=== PATIENT | female | born 1995 | race African-American/Black ===

== ENCOUNTER 2021-08-10 09:32 | Observation (INO) ==
--- NOTE | 2021-08-10 09:47 | Progress Note ---
Date of Service August 10, 2021 Assessment & Plan (1) Abdominal pain affecting : Plan: Signs and symptoms are more likely due to GERD, however will have patient evaluated in ER, and rule out any gallbladder or other pathology at this time UA sent Pain does not appear to be related Patient and her voiced their understanding and agreement with the plan. Patient to be transferred to the ER for further evaluation Subjective Patient is 26 year old at 20 6/7 weeks with complaint of epigastric pain, feels like heartburn and all over abdominal pain. Took Tylenol this morning at 4 AM, did not have much relief with Tylenol, called the answering service and then went to clinic with her where she is noted to be in a lot of pain at that time. She was counseled by nursing staff to go immediately to the ER. She then presented to labor and delivery. Notes movement. Denies leaking or bleeding. Denies any contractions. Denies fevers or chills, nausea or vomiting. Otherwise feeling well. Previous CDx2 Review of Systems Constitutional: as per Subjective / HPI Physical Exam Constitutional: WD/WN, vitals as above Respiratory: normal respiratory effort, lungs clear to auscultation Cardiovascular: RRR, no murmur, no edema Gastrointestinal (Abdomen): Soft abdomen, tenderness over the epigastric region and right upper quadrant, no guarding or rebound. Positive bowel sounds Uterus soft No CVA tenderness Genitourinary: normal external appearance and bladder normal to inspection FHT: [address] [place]: no contractions Cervix: 0/0/-3 (confirmed on previa on recent anatomy scan prior to cervical exam) Results & Data ([facility]) Vital Signs (Past 12 Hours) Vital Signs Pulse BP 08/10/21 09:41 100 H 126/64
[2021-08-10 10:42] LABS: Appearance Urine Clear (Clear); Bilirubin Urine Negative (Negative); Blood Urine Negative (Negative); Color Urine Yellow; Glucose Urine UA Negative (Negative); Ketones Urine Negative (Negative); Leukocyte Esterase Urine Negative (Negative); Nitrite Urine Negative (Negative); Protein Urine Negative (Negative); Specific Gravity Urine 1.007 (1.000-1.030); Urobilinogen Urine Negative (Negative)
== END 2021-08-10 10:30 | disposition home or self-care (01) ==
LOC: EDINP → 4S1 → OPB 09:32 → EDSTATUS 09:32 → 4S1 09:34 → EDINP 09:34

== ENCOUNTER 2021-12-18 06:59 | Inpatient (IN) ==
--- NOTE | 2021-12-12 09:01 | Anesthesiology Consultation ---
Date of Service December 12, 2021 Assessment & Plan (1) Encounter for pre-operative examination: Chart Review Chart Review: Acceptable Risk for Surgery and Patient NOT seen in Pre Admission Testing History Surgery Operation Date: 12/18/21 07:30 Proposed Procedures p Repeat Section in LD - Phani Frye MD Height/Weight Weight: 90.718 kg Allergies Allergy/AdvReac Type Severity Reaction Status Date / Time No Known Allergies Allergy Verified 12/11/21 15:08 Medications Home Medications Medication Instructions Recorded Confirmed Last Taken acetaminophen 500 mg tablet 1,000 mg PO Q6H PRN Pain 03/01/20 12/11/21 08/10/21 (Tylenol Extra Strength) ibuprofen 200 mg tablet (Advil) 200 mg PO Q6H PRN Pain 03/03/20 12/11/21 08/10/21 vitamin with calcium 1 tab PO QAM 08/10/21 12/11/21 08/10/21 no.72-iron 27 mg-folic acid 1 mg tablet ( Vitamins Plus Low Iron) Past Medical History Medical History History of anesthesia problem "during last pt started to feel what they were doing" No pertinent past medical history Past Family History Family History Denies family history of Ovarian cancer Deep vein thrombosis Clotting disorder Breast cancer Colorectal cancer Uterine cancer Past Surgical History Surgical History Previous section x2 Social History Smoking Status: Never smoker Do You Dip or Chew Tobacco: No Hx Alcohol Use: No Hx Substance Use: No substance use type: does not use
[~2021-12-18 06:59] MED LIST: CITRIC ACID/SODIUM CITRATE 15 ML UDC PO SCH; ceFAZolin 2000MG 2,000 MG/15 ML SYR IV SCH
[2021-12-18] MEDS ORDERED: fentaNYL citrate 100 MCG/2 ML VIAL ONE (07:09)
[2021-12-18] MEDS ORDERED: ONDANSETRON INJ 2 MG/ML 2 ML VIAL ONE (07:09)
[2021-12-18] MEDS ORDERED: KETOROLAC 30 MG/ML VIAL ONE (07:09)
[2021-12-18] MEDS ORDERED: OXYTOCIN 10 UNITS/ML 10ML VIAL ONE (07:09)
[2021-12-18] MEDS ORDERED: MoRPHine SULFATE PF 1 MG/ML 10 ML AMP/VIAL ONE (07:09)
[2021-12-18] MEDS ORDERED: CITRIC ACID/SODIUM CITRATE 15 ML UDC ONE (07:27)
[2021-12-18] MEDS ORDERED: LACTATED RINGER'S 1,000 ML IV SCH (07:30)
[2021-12-18 07:46] LABS: Basophils # (auto) 0.02 K/uL (0-0.2); Basophils % (auto) 0.4 %; Eosinophils # (auto) 0.15 K/uL (0-0.50); Eosinophils % (auto) 2.7 %; Hematocrit (blood only) 36.5 % (34.1-44.9); Hemoglobin 12.7 g/dl (12.0-16.0); Immature Granulocytes # (auto) 0.01 K/uL (0.00-0.02); Immature Granulocytes % (auto) 0.2 %; Lymphocytes # (auto) 1.82 K/uL (1.2-3.4); Lymphocytes % (auto) 32.7 %; Mean Corpuscular Hemoglobin 25.7 pg (25.0-34.0); Mean Corpuscular Hgb Conc 34.8 g/dL (32.0-36.0); Mean Corpuscular Volume 73.9 fL (80.0-100.0); Mean Platelet Volume 9.9 fL (9.4-12.3); Monocytes # (auto) 0.31 K/uL (0.24-0.82); Monocytes % (auto) 5.6 %; Neutrophils # (auto) 3.26 K/uL (1.4-6.5); Neutrophils % (auto) 58.4 %; Platelet Count 199 K/uL (130-400); RDW Standard Deviation 37.3 fL (36.4-46.3); Red Blood Count 4.94 M/uL (3.93-5.22); White Blood Count 5.57 K/ul (4.8-10.8)
[2021-12-18] MEDS ORDERED: ACETAMINOPHEN 1000 MG/100 ML IV IV PRN (08:01)
[2021-12-18] MEDS ORDERED: ONDANSETRON INJ 2 MG/ML 2 ML VIAL IV PRN ×2 (08:01→10:16)
[2021-12-18] MEDS ORDERED: LACTATED RINGER'S 500 ML IV PRN (08:01)
[2021-12-18] MEDS ORDERED: MoRPHine SULFATE PF 1 MG/ML 10 ML AMP/VIAL INT SPINAL ONE (08:01)
[2021-12-18] MEDS ORDERED: NALOXONE HCL 1 MG in SODIUM CHLORIDE 0.9% 1000ML 1,000 ML IV PRN (08:01)
[2021-12-18] MEDS ORDERED: HYDROmorphone INJ 0.5 MG/0.5 ML SYR IV PRN (08:01)
[2021-12-18] MEDS ORDERED: KETOROLAC 30 MG/ML VIAL IV PRN (08:01)
[2021-12-18] MEDS ORDERED: ePHEDrine sulfate 50 MG/ML AMP IV PRN (08:01)
[2021-12-18] MEDS ORDERED: NALOXONE HCL 0.08 MG in SYRINGE 1.8 ML IV PRN (08:01)
[2021-12-18] MEDS ORDERED: diphenhydrAMINE 50 MG/ML VIAL IV PRN (08:01)
[2021-12-18] MEDS ORDERED: NALBUPHINE HCL INJ 10 MG/ML AMP IV PRN (08:01)
[2021-12-18] MEDS ORDERED: PROMETHAZINE HCL 25 MG in SODIUM CHLORIDE 0.9% 50 ML IV PRN (08:01)
[2021-12-18] MEDS ORDERED: NALOXONE HCL 0.4 MG/1 ML VIAL/CARP IV PRN (08:01)
[2021-12-18] MEDS ORDERED: SODIUM CHLORIDE 0.9% 250 ML IV PRN (08:13)
[2021-12-18] MEDS ORDERED: DC INTRASPINAL MORPHINE SCH (08:15)
[2021-12-18] MEDS ORDERED: SODIUM CHLORIDE 0.9% 1000ML 1,000 ML IV SCH (08:15)
[2021-12-18] MEDS ORDERED: NO NARCOTICS OR SEDATIVES SCH (08:15)
--- NOTE | 2021-12-18 08:17 | History & Physical Bridge Note ---
Date of Service December 18, 2021 History & Physical Bridge Note I have examined the patient, reviewed the History & Physical and in the interval since the performance of the History & Physical I have noted the following changes of clinical significance: no changes noted She has signed an informed consent for Repeat Low Transverse Csection.
--- NOTE | 2021-12-18 10:12 | Post Operative Brief Note ---
Immediate Post Op Note v1 Date of Surgery December 18, 2021 Pre & Post Diagnosis Operation Date: 12/18/21 07:30 Pre-Op Diagnosis: Intrauterine Desires repeat section Post-Op Diagnosis: Repeat Low Transverse section I identified the patient and participated in the time-out.: Yes Procedure Operation Date: 12/18/21 07:30 Actual Procedures p Repeat Section in LD OR for live female at 0855 - Phani Lanza MD Surgeon Phani Frye MD Fish Seiner GALINA Campbell Estimated Blood Loss 500 Findings Consistent with Post-Op Diagnosis Drains Cornelius Catheter Anesthesia Type Spinal Complications none
[2021-12-18] MEDS ORDERED: MAGNESIUM HYDROXIDE SUSP 30 ML UDC PO PRN (10:16)
[2021-12-18] MEDS ORDERED: DIPHTHERIA/TETANUS/PERTUSSIS 0.5 ML SYR/VIAL IM ONE (10:16)
[2021-12-18] MEDS ORDERED: HYDROCORTISONE ACETATE 25 MG SUPP PR PRN (10:16)
[2021-12-18] MEDS ORDERED: BENZOCAINE 20% AER SPR 82.5 GM CAN EXT PRN (10:16)
[2021-12-18] MEDS ORDERED: SENNA 8.6 MG TAB PO PRN (10:16)
[2021-12-18] MEDS ORDERED: OXYTOCIN IV SCH (10:30)
[2021-12-18] MEDS ORDERED: LACTATED RINGER S IV SCH (10:30)
--- NOTE | 2021-12-18 10:49 | Anesthesiology Progress Note ---
Date of Service December 18, 2021 Anesthesia Post Procedure Vital Signs Vital Signs: Temp Pulse Resp BP Pulse Ox 12/18/21 07:15 98.1 F 76 18 111/70 97 12/18/21 10:46 74 98 12/18/21 10:40 79 115/76 12/18/21 10:39 87 97 12/18/21 10:34 80 99 12/18/21 10:30 72 136/89 12/18/21 10:29 72 98 12/18/21 10:24 71 98 12/18/21 10:19 94 12/18/21 10:19 71 12/18/21 10:20 71 109/69 12/18/21 10:19 71 94 12/18/21 10:14 77 97 12/18/21 10:15 74 108/66 12/18/21 08:10 85 97 12/18/21 08:05 83 97 12/18/21 08:00 85 97 12/18/21 07:55 84 96 12/18/21 07:50 81 97 12/18/21 07:45 82 97 12/18/21 07:09 79 97 12/18/21 07:04 96 H 96 12/18/21 07:01 95 H 111/70 Transfer of Care Handoff Completed per policy Notes Mental Status: alert / awake / arousable and participated in evaluation Patient Amnestic to Procedure: Yes Nausea / Vomiting: adequately controlled Pain: adequately controlled Airway Patency, RR, SpO2: stable & adequate BP & HR: stable & adequate Hydration State: stable & adequate Neuraxial Anesthesia: was administered and sensory block is resolving Anesthetic Complications: no major complications apparent and Pt Satisfied with anesthetic care
[2021-12-18] MEDS ORDERED: PANTOprazole 40 MG TAB PO SCH ×2 (11:00→21:00)
[2021-12-18] MEDS ORDERED: Nursing to Pharmacy Communication SCH (11:00)
[2021-12-18] MEDS: OXYTOCIN 20 UNITS in LACTATED RINGER'S 1,000 ML IV SCH ×2 (11:40→21:32)
[2021-12-18] MEDS ORDERED: PANTOprazole 20 MG in SYRINGE 0 ML IV ONE (12:00)
[2021-12-18] MEDS: LACTATED RINGER'S 1,000 ML IV SCH ×2 (12:26→13:25)
--- NOTE | 2021-12-18 12:28 | Operative Report (OR) ---
DATE OF SURGERY: 12/18/2021. PREOPERATIVE DIAGNOSES: The patient is a 26-year-old G3, P2-0-0-2, at 39.3 weeks of gestation, presenting today for scheduled repeat due to history of two prior C-sections. POSTOPERATIVE DIAGNOSES: The patient is a 26-year-old G3, P2-0-0-2, at 39.3 weeks of gestation, presenting today for scheduled repeat due to history of two prior C-sections. PROCEDURE: Repeat low transverse with Pfannenstiel skin incision, lysis of adhesions, excision of skin keloid /scar. SURGEON: Phani Frye MD SECOND RIGGER: GALINA Campbell. ESTIMATED BLOOD LOSS: 500ml. DRAINS: Cornelius catheter drained 250 mL of clear urine. ANESTHESIA: Spinal. Dr Saini COMPLICATIONS: None. FINDINGS: Baby was a viable female delivered at 8:58 a.m. Apgars 9/9, weight is 3095gr. Baby was in cephalic / occiput posterior presentation with facing upwards, deflexion position. Maternal findings: Scarring on the rectus fascia as well as rectus muscles in the midline. Adhesions of omentum to the parietal peritoneum. Normal uterus, fallopian tubes, and ovaries. DESCRIPTION OF PROCEDURE: The patient was taken to the operating room where spinal anesthesia was given without difficulty. She was placed in dorsal supine position with leftward tilt. She was prepared and draped in the usual sterile fashion. Pfannenstiel skin incision was made from the old scar, carried through to the underlying layer of fascia with the Bovie. Fascia was incised in the midline and incision was extended laterally with the help of Morgan scissors and with the tip of Bovie. Rectus fascia was densely adhered to the rectus muscles and it was grasped with 2 Chepe clamps, elevated, and underlying rectus muscles were dissected off sharply with the tip of Bovie, Morgan scissors and bluntly with fingers. It was done on the upper and lower sides. The rectus muscles were again adhered with the scar in the midline. The scalpel was used from the midline to open / release some of the adhesions and the fingers were entered under it and helpse to elevate and open in the middle avoiding other structures. Then the peritoneum was entered with a tip of finger. The incision was extended superiorly and inferiorly with good visualization of the bladder. There was an adhesion on the omentum to the peritoneum, it was incised on the thinnest part with Bovie tip and was hemostatic. The Barry abdominal retractor was placed. The abdominal wall was retracted enough to deliver the . Unable to identify and vesicouterine peritoneum, it was already very thin and almost absent. Uterine lower segment was intact. It was incised in transverse fashion. Incision was extended laterally with the help of bandage scissors. Membranes were ruptured and clear fluid was obtained and then we came across with the baby's face. The head was in OP, and deflexion position. It was brought to the incision, flexed and delivered without difficulty. Mouth and nose were suctioned. She was vigorously moving and crying at that point. The cord was clamped x2 and cut at 1 minute delay. Baby was handed to the waiting pediatric team with Dr. Handy. The placenta was delivered spontaneously. We were unable to exteriorize the uterus due to it being bulky and larger uterus. It was wiped and cleaned manually, cleared of all clots and debris. The uterine incision was repaired with 0 Vicryl in a running locked fashion and a second imbricating layer was placed with another 0 Vicryl in a running locked fashion and there was oozing on the left corner, which was controlled with [id number] sutures with 0 Vicryl. Excellent hemostasis was achieved. Ovaries and fallopian tubes were checked to be normal. Pelvis was irrigated with warm normal saline and suctioned. Incision was checked to be again hemostatic. Parietal peritoneum was reapproximated with 2-0 Vicryl in a running fashion and the rectus muscles were reapproximated with 2-0 Vicryl in a running fashion and excellent hemostasis was achieved and then the rectus fascia was reapproximated with 0 Vicryl in a running fashion. Subcuticular fat tissue was brought together with 3-0 Vicryl in a running fashion. There was a keloid on the lower side of the incision. It was held with Allis clamps and incised with a scalpel. The skin edges were smoothed and the skin was closed with 4-0 Monocryl in a subcuticular fashion. The patient tolerated the procedure well. Sponge, lap, needle count was correct x3. She received 2 g of cefazolin before surgery. She was taken to recovery room in stable condition. No complications happened and I was present during whole procedure. Job ID: [id number] [facility] HOSPITALJefe
[2021-12-18] MEDS ORDERED: OXYTOCIN 20 UNITS in D5W AND LACTATED RINGERS 1,000 ML IV SCH (13:30)
[2021-12-18] MEDS: PANTOprazole 40 MG TAB PO SCH (13:35)
[2021-12-18] MEDS: SIMETHICONE 80 MG CHEW PO SCH ×3 (14:05→21:25)
[2021-12-18] MEDS: METOCLOPRAMIDE HCL INJ 5 MG/ML 2 ML VIAL IV PRN ×2 (14:06→14:09)
[2021-12-18 14:18] LABS: Basophils # (auto) 0.02 K/uL (0-0.2); Basophils % (auto) 0.3 %; Eosinophils # (auto) 0.05 K/uL (0-0.50); Eosinophils % (auto) 0.8 %; Hematocrit (blood only) 35.3 % (34.1-44.9); Hemoglobin 12.6 g/dl (12.0-16.0); Immature Granulocytes # (auto) 0.02 K/uL (0.00-0.02); Immature Granulocytes % (auto) 0.3 %; Lymphocytes # (auto) 1.09 K/uL (1.2-3.4); Lymphocytes % (auto) 17.1 %; Mean Corpuscular Hemoglobin 26.5 pg (25.0-34.0); Mean Corpuscular Hgb Conc 35.7 g/dL (32.0-36.0); Mean Corpuscular Volume 74.2 fL (80.0-100.0); Mean Platelet Volume 10.1 fL (9.4-12.3); Monocytes # (auto) 0.29 K/uL (0.24-0.82); Monocytes % (auto) 4.6 %; Neutrophils # (auto) 4.89 K/uL (1.4-6.5); Neutrophils % (auto) 76.9 %; Platelet Count 181 K/uL (130-400); RDW Standard Deviation 37.2 fL (36.4-46.3); Red Blood Count 4.76 M/uL (3.93-5.22); White Blood Count 6.36 K/ul (4.8-10.8)
[2021-12-18 14:33] LABS: Fibrinogen 566 mg/dl (184-400); INR 0.9 (0.9-1.1); Partial Thromboplastin Time 27.9 Seconds (21.0-31.0)
[2021-12-18 14:39] LABS: Albumin Globulin Ratio 0.9 (0.9-2); BUN Creatinine Ratio 15.8 (10-20); Bilirubin,Total 0.5 mg/dl (0.2-1.0); Calcium 8.6 mg/dl (8.5-10.1); Est GFR (African American) 147.2 ml/min; Globulin 3.4 gm/dl (2.5-4.0); Potassium 3.5 mmol/L (3.5-5.1); Total Protein 6.4 gm/dl (6.0-8.3)
[2021-12-18] MEDS ORDERED: GELATIN SPONGE SZ 100 EXT ONE (14:39)
[2021-12-18] MEDS: DOCUSATE SODIUM 100 MG CAP PO SCH (21:25)
[2021-12-19] MEDS ORDERED: diphenhydrAMINE Capsule 25 MG CAP PO PRN (02:02)
[2021-12-19] MEDS ORDERED: PROMETHAZINE HCL 25 MG in SODIUM CHLORIDE 0.9% 50 ML IV PRN (02:02)
[2021-12-19] MEDS ORDERED: diphenhydrAMINE 50 MG/ML VIAL IV PRN (02:02)
[2021-12-19 06:37] LABS: Basophils # (auto) 0.02 K/uL (0-0.2); Basophils % (auto) 0.3 %; Eosinophils # (auto) 0.05 K/uL (0-0.50); Eosinophils % (auto) 0.6 %; Hematocrit (blood only) 34.1 % (34.1-44.9); Hemoglobin 11.8 g/dl (12.0-16.0); Immature Granulocytes # (auto) 0.02 K/uL (0.00-0.02); Immature Granulocytes % (auto) 0.3 %; Lymphocytes # (auto) 1.27 K/uL (1.2-3.4); Lymphocytes % (auto) 16.2 %; Mean Corpuscular Hemoglobin 25.6 pg (25.0-34.0); Mean Corpuscular Hgb Conc 34.6 g/dL (32.0-36.0); Mean Platelet Volume 10.1 fL (9.4-12.3); Monocytes # (auto) 0.43 K/uL (0.24-0.82); Monocytes % (auto) 5.5 %; Neutrophils # (auto) 6.07 K/uL (1.4-6.5); Neutrophils % (auto) 77.1 %; Platelet Count 186 K/uL (130-400); RDW Coefficient of Variation 13.9 % (11.5-14.5); RDW Standard Deviation 37.1 fL (36.4-46.3); Red Blood Count 4.61 M/uL (3.93-5.22); White Blood Count 7.86 K/ul (4.8-10.8)
[2021-12-19] MEDS: oxyCODONE/ACETAMINOPHEN 5mg/325mg TAB PO PRN ×2 (07:39→22:25)
[2021-12-19] MEDS: SIMETHICONE 80 MG CHEW PO SCH ×4 (07:39→20:08)
[2021-12-19] MEDS: FERROUS SULFATE 325 MG TAB PO SCH (07:40)
[2021-12-19] MEDS: IBUPROFEN 600 MG TAB PO PRN ×2 (07:40→22:25)
[2021-12-19] MEDS: PRENATAL VITAMIN 1 TAB PO SCH (07:40)
[2021-12-19] MEDS: DOCUSATE SODIUM 100 MG CAP PO SCH ×2 (07:40→20:08)
[2021-12-19] MEDS: PANTOprazole 40 MG TAB PO SCH (07:44)
[2021-12-19] MEDS ORDERED: PANTOprazole 40 MG TAB PO SCH (09:00)
--- NOTE | 2021-12-19 10:34 | Obstetrical Progress Note ---
Date of Service December 19, 2021 Assessment & Plan (1) delivery delivered: C/sec Day #2 Pt doing well Continue day #1 care Results & Data ([facility]) Vital Signs (Past 12 Hours) Vital Signs Temp Pulse Pulse Resp BP Pulse Ox O2 Del Method 12/19/21 08:00 37.4 C 73 18 122/82 97 Room Air 12/19/21 03:45 37.0 C 79 16 119/81 97 Room Air 12/19/21 02:30 16 97 12/19/21 02:01 16 94 12/19/21 01:05 16 93 12/19/21 00:05 16 95 12/18/21 23:05 16 97 12/18/21 23:05 36.9 C 61 16 112/74 97 Room Air
[2021-12-19] MEDS ORDERED: bisacodyL 5 MG TABEC PO SCH (20:00)
[2021-12-20] MEDS: oxyCODONE/ACETAMINOPHEN 5mg/325mg TAB PO PRN ×5 (02:30→21:01)
[2021-12-20] MEDS: IBUPROFEN 600 MG TAB PO PRN ×5 (02:31→21:01)
[2021-12-20 06:51] LABS: Hematocrit (blood only) 35.3 % (34.1-44.9)
[2021-12-20] MEDS: PRENATAL VITAMIN 1 TAB PO SCH (09:31)
[2021-12-20] MEDS: FERROUS SULFATE 325 MG TAB PO SCH (09:31)
[2021-12-20] MEDS: SIMETHICONE 80 MG CHEW PO SCH ×4 (09:31→21:01)
[2021-12-20] MEDS: DOCUSATE SODIUM 100 MG CAP PO SCH ×2 (09:31→21:01)
[2021-12-20] MEDS ORDERED: bisacodyL 10 MG SUPP PR PRN (10:16)
--- NOTE | 2021-12-20 11:23 | Obstetrical Progress Note ---
Date of Service December 20, 2021 Subjective Ambulation: ambulating normally Voiding: no voiding problems Passing Gas:: Yes Diet Tolerance:: regular diet Lochia:: Small Feeding Type:: breast feeding Current Pain Level(1-10): 4 still c/o some abdominal pain. wants to wait till tomorrow for d/c Physical Exam Constitutional WD/WN, vitals as above Gastrointestinal (Abdomen) normal bowel sounds, soft, nontender, no hepatosplenomegaly Inspection/Auscultation: + abdominal surgical incision incision c/d/i Musculoskeletal Extremities: extremities normal to inspection Skin no rashes, warm and dry Neurologic patellar DTR's 2+ bilat, sensation intact Psychiatric A+Ox3, euthymic affect Results & Data ([facility]) Vital Signs (Past 12 Hours) Vital Signs Temp Pulse Resp BP Pulse Ox O2 Del Method 12/20/21 07:30 81 16 108/73 Room Air 12/20/21 00:20 37.1 C 91 H 18 138/81 95 Room Air Laboratory Results 12/18/21 12/18/21 12/18/21 06:50 07:29 07:29 WBC 5.57 RBC 4.94 Hgb 12.7 Hct 36.5 MCV 73.9 L MCH 25.7 MCHC 34.8 RDW Std Deviation 37.3 RDW Coeff of Alvin 14.0 Plt Count 199 MPV 9.9 Immature Gran % (Auto) 0.2 Neut % (Auto) 58.4 Lymph % (Auto) 32.7 [place] % (Auto) 5.6 Eos % (Auto) 2.7 Baso % (Auto) 0.4 Neut # (Auto) 3.26 Lymph # (Auto) 1.82 [place] # (Auto) 0.31 Eos # (Auto) 0.15 Baso # (Auto) 0.02 Immature Gran # (Auto) 0.01 PT INR APTT PTT Ratio Fibrinogen Sodium Potassium Chloride Carbon Dioxide Anion Gap BUN Creatinine Est Cr Clr Drug Dosing Est GFR ( Amer) Est GFR (Non-Af Amer) BUN/Creatinine Ratio Glucose Calcium Total Bilirubin AST ALT Alkaline Phosphatase Lactate Dehydrogenase Total Protein Albumin Globulin Albumin/Globulin Ratio SARS-CoV-2, RNA, NAAT NEGATIVE Blood Type O Positive Antibody Screen NEGATIVE Crossmatch See Detail 12/18/21 12/18/21 12/18/21 13:52 13:52 13:52 WBC 6.36 RBC 4.76 Hgb 12.6 Hct 35.3 MCV 74.2 L MCH 26.5 MCHC 35.7 RDW Std Deviation 37.2 RDW Coeff of Alvin 14.0 Plt Count 181 MPV 10.1 Immature Gran % (Auto) 0.3 Neut % (Auto) 76.9 Lymph % (Auto) 17.1 [place] % (Auto) 4.6 Eos % (Auto) 0.8 Baso % (Auto) 0.3 Neut # (Auto) 4.89 Lymph # (Auto) 1.09 L [place] # (Auto) 0.29 Eos # (Auto) 0.05 Baso # (Auto) 0.02 Immature Gran # (Auto) 0.02 PT 10.0 INR 0.9 APTT 27.9 PTT Ratio 1.0 Fibrinogen 566 H Sodium 137 Potassium 3.5 Chloride 107 Carbon Dioxide 22 Anion Gap 8 BUN 9 Creatinine 0.57 L Est Cr Clr Drug Dosing 152.0 Est GFR ( Amer) 147.2 Est GFR (Non-Af Amer) 127.0 BUN/Creatinine Ratio 15.8 Glucose 87 Calcium 8.6 Total Bilirubin 0.5 AST 20 ALT 10 Alkaline Phosphatase 99 Lactate Dehydrogenase Total Protein 6.4 Albumin 3.0 L Globulin 3.4 Albumin/Globulin Ratio 0.9 SARS-CoV-2, RNA, NAAT Blood Type Antibody Screen Crossmatch 12/18/21 12/19/21 12/20/21 13:52 06:23 05:45 WBC 7.86 RBC 4.61 Hgb 11.8 L 12.0 Hct 34.1 35.3 MCV 74.0 L MCH 25.6 MCHC 34.6 RDW Std Deviation 37.1 RDW Coeff of Alvin 13.9 Plt Count 186 MPV 10.1 Immature Gran % (Auto) 0.3 Neut % (Auto) 77.1 Lymph % (Auto) 16.2 [place] % (Auto) 5.5 Eos % (Auto) 0.6 Baso % (Auto) 0.3 Neut # (Auto) 6.07 Lymph # (Auto) 1.27 [place] # (Auto) 0.43 Eos # (Auto) 0.05 Baso # (Auto) 0.02 Immature Gran # (Auto) 0.02 PT INR APTT PTT Ratio Fibrinogen Sodium Potassium Chloride Carbon Dioxide Anion Gap BUN Creatinine Est Cr Clr Drug Dosing Est GFR ( Amer) Est GFR (Non-Af Amer) BUN/Creatinine Ratio Glucose Calcium Total Bilirubin AST ALT Alkaline Phosphatase Lactate Dehydrogenase 187 Total Protein Albumin Globulin Albumin/Globulin Ratio SARS-CoV-2, RNA, NAAT Blood Type Antibody Screen Crossmatch
[2021-12-20] MEDS: PANTOprazole 40 MG TAB PO SCH (16:51)
[2021-12-21] MEDS: IBUPROFEN 600 MG TAB PO PRN ×2 (03:24→14:05)
[2021-12-21] MEDS: oxyCODONE/ACETAMINOPHEN 5mg/325mg TAB PO PRN ×2 (03:25→14:06)
[2021-12-21] MEDS: FERROUS SULFATE 325 MG TAB PO SCH (07:47)
[2021-12-21] MEDS: PRENATAL VITAMIN 1 TAB PO SCH (07:47)
[2021-12-21] MEDS: SIMETHICONE 80 MG CHEW PO SCH ×3 (07:47→17:19)
[2021-12-21] MEDS: DOCUSATE SODIUM 100 MG CAP PO SCH (07:47)
[2021-12-21] MEDS: PANTOprazole 40 MG TAB PO SCH (08:26)
--- NOTE | 2021-12-21 08:48 | Obstetrical Progress Note ---
Date of Service December 21, 2021 Subjective Ambulation: ambulating normally Voiding: no voiding problems Passing Gas:: Yes Diet Tolerance:: regular diet Lochia:: Small Feeding Type:: breast feeding Current Pain Level(1-10): 0 doing well. plans for d/c Physical Exam Constitutional WD/WN, vitals as above Gastrointestinal (Abdomen) normal bowel sounds, soft, nontender, no hepatosplenomegaly incision c/d/i Musculoskeletal Extremities: extremities normal to inspection Skin no rashes, warm and dry Neurologic patellar DTR's 2+ bilat, sensation intact Psychiatric A+Ox3, euthymic affect Results & Data ([facility]) Vital Signs (Past 12 Hours) Vital Signs Temp Pulse Resp BP O2 Del Method 12/20/21 23:30 36.4 C L 70 18 118/80 Room Air Laboratory Results Laboratory Results - last 72 hr 12/18/21 12/18/21 12/18/21 07:29 13:52 13:52 WBC 6.36 RBC 4.76 Hgb 12.6 Hct 35.3 MCV 74.2 L MCH 26.5 MCHC 35.7 RDW Std Deviation 37.2 RDW Coeff of Alvin 14.0 Plt Count 181 MPV 10.1 Immature Gran % (Auto) 0.3 Neut % (Auto) 76.9 Lymph % (Auto) 17.1 [place] % (Auto) 4.6 Eos % (Auto) 0.8 Baso % (Auto) 0.3 Neut # (Auto) 4.89 Lymph # (Auto) 1.09 L [place] # (Auto) 0.29 Eos # (Auto) 0.05 Baso # (Auto) 0.02 Immature Gran # (Auto) 0.02 PT 10.0 INR 0.9 APTT 27.9 PTT Ratio 1.0 Fibrinogen 566 H Sodium Potassium Chloride Carbon Dioxide Anion Gap BUN Creatinine Est Cr Clr Drug Dosing Est GFR ( Amer) Est GFR (Non-Af Amer) BUN/Creatinine Ratio Glucose Calcium Total Bilirubin AST ALT Alkaline Phosphatase Lactate Dehydrogenase Total Protein Albumin Globulin Albumin/Globulin Ratio Blood Type O Positive Antibody Screen NEGATIVE Crossmatch See Detail 12/18/21 12/18/21 12/19/21 13:52 13:52 06:23 WBC 7.86 RBC 4.61 Hgb 11.8 L Hct 34.1 MCV 74.0 L MCH 25.6 MCHC 34.6 RDW Std Deviation 37.1 RDW Coeff of Alvin 13.9 Plt Count 186 MPV 10.1 Immature Gran % (Auto) 0.3 Neut % (Auto) 77.1 Lymph % (Auto) 16.2 [place] % (Auto) 5.5 Eos % (Auto) 0.6 Baso % (Auto) 0.3 Neut # (Auto) 6.07 Lymph # (Auto) 1.27 [place] # (Auto) 0.43 Eos # (Auto) 0.05 Baso # (Auto) 0.02 Immature Gran # (Auto) 0.02 PT INR APTT PTT Ratio Fibrinogen Sodium 137 Potassium 3.5 Chloride 107 Carbon Dioxide 22 Anion Gap 8 BUN 9 Creatinine 0.57 L Est Cr Clr Drug Dosing 152.0 Est GFR ( Amer) 147.2 Est GFR (Non-Af Amer) 127.0 BUN/Creatinine Ratio 15.8 Glucose 87 Calcium 8.6 Total Bilirubin 0.5 AST 20 ALT 10 Alkaline Phosphatase 99 Lactate Dehydrogenase 187 Total Protein 6.4 Albumin 3.0 L Globulin 3.4 Albumin/Globulin Ratio 0.9 Blood Type Antibody Screen Crossmatch 12/20/21 05:45 WBC RBC Hgb 12.0 Hct 35.3 MCV MCH MCHC RDW Std Deviation RDW Coeff of Alvin Plt Count MPV Immature Gran % (Auto) Neut % (Auto) Lymph % (Auto) [place] % (Auto) Eos % (Auto) Baso % (Auto) Neut # (Auto) Lymph # (Auto) [place] # (Auto) Eos # (Auto) Baso # (Auto) Immature Gran # (Auto) PT INR APTT PTT Ratio Fibrinogen Sodium Potassium Chloride Carbon Dioxide Anion Gap BUN Creatinine Est Cr Clr Drug Dosing Est GFR ( Amer) Est GFR (Non-Af Amer) BUN/Creatinine Ratio Glucose Calcium Total Bilirubin AST ALT Alkaline Phosphatase Lactate Dehydrogenase Total Protein Albumin Globulin Albumin/Globulin Ratio Blood Type Antibody Screen Crossmatch
== END 2021-12-21 18:10 | disposition home or self-care (01) | DRG 788 ==
LOC: 4S1 06:59 → EDSTATUS 07:30 → 4E2 16:00